=== PATIENT | male | born 1955 | race Caucasian/White ===

== ENCOUNTER → 2016-09-08 | Outpatient (CLI) | payer BC ==
[~2016-09-08] MED LIST: ACET-1256 PO; CHOL100010 PO; EZET10TA41 PO; GLC500 PO; LISI-461 PO; MELA1TAB5 PO; OXYC1TAB3 PO; SENNTAB23 PO
[2016-09-08 13:11] LABS: BLOOD UREA NITROGEN 24 mg/dl (7-18); BUN/CREATININE RATIO 19.8 (10-20); CALCIUM 9.1 mg/dl (8.5-10.1); CARBON DIOXIDE 23 mmol/L (21-32); CHLORIDE 106 mmol/L (98-107); GLUCOSE 338 mg/dl (70-99); POTASSIUM 4.9 mmol/L (3.5-5.1); SODIUM 138 mmol/L (136-145)
[2016-09-08 13:20] LABS: BETA-HYDROXYBUTYRATE 1.88 mg/dL (0.2-2.81)
[2016-09-08 13:34] LABS: ESTIMATED AVERAGE GLUCOSE 289 mg/dl; HA1C FLAG Normal (Normal)
== END | disposition home or self-care (01) ==
LOC: C.LABPVFM 07:53
PROVIDERS: ATTEND Family Medicine
DX: E11.9 Type 2 diabetes mellitus without complications (principal)

== ENCOUNTER → 2017-01-01 | Outpatient (CLI) | payer BC ==
[2017-01-01 17:40] LABS: HEMATOCRIT 40.2 % (42-52); MEAN CELL VOLUME 85.4 fL (80-100); MEAN CORPUSCULAR HEMOGLOBIN 28.2 pg (25-34); MEAN CORPUSCULAR HGB CONC 33.1 g/dl (32-36); RED BLOOD COUNT 4.71 M/uL (4.7-6.1); WHITE BLOOD COUNT 5.63 K/uL (4.8-10.8)
[2017-01-01 18:05] LABS: BASO % 0.2 %; BASO ABS # 0.01 K/uL (0-0.2); COMPLETE YES; EOS % 1.6 %; IG% 0.5 %; LYMPH % 19.7 %; LYMPH ABS # 1.11 K/uL (1.2-3.4); MONO % 7.3 %; NEUT % 70.7 %; PLATELET COUNT 83 K/uL (130-400); PLT ESTIMATE DECREASED
[2017-01-01 18:39] LABS: BLOOD UREA NITROGEN 21 mg/dl (7-18); BUN/CREATININE RATIO 17.3 (10-20); CARBON DIOXIDE 21 mmol/L (21-32); CHLORIDE 107 mmol/L (98-107); CHOLESTEROL 152 mg/dl (0-200); GLUCOSE 178 mg/dl (70-99); POTASSIUM 4.2 mmol/L (3.5-5.1); SODIUM 140 mmol/L (136-145); TRIGLYCERIDES 350 mg/dl (0-150); VERY LOW DENSITY LIPOPROT CALC 70 mg/dl
[2017-01-01 18:43] LABS: CHOLESTEROL/HDL RATIO 6.1; HDL CHOLESTEROL 25 mg/dl; LDL CHOLESTEROL CALCULATED 57 mg/dl
[2017-01-01 19:06] LABS: CALCIUM 8.9 mg/dl (8.5-10.1)
[2017-01-02 06:43] LABS: ESTIMATED AVERAGE GLUCOSE 232 mg/dl; HA1C FLAG Normal (Normal)
== END | disposition home or self-care (01) ==
LOC: C.LABPVFM 16:10
PROVIDERS: ATTEND Family Medicine
DX: I10 Essential (primary) hypertension (principal); E11.65 Type 2 diabetes mellitus with hyperglycemia; E78.2 Mixed hyperlipidemia; D69.6 Thrombocytopenia, unspecified

== ENCOUNTER → 2017-01-30 | Outpatient (CLI) | payer BC ==
[~2017-01-30] MED LIST changes: +GADAVIST IV PRN
--- NOTE | 2017-01-30 14:05 | DIAGNOSTIC IMAGING REPORT ---
LUMBAR SPINE MRI WITH AND WITHOUT CONTRAST HISTORY: Pain. Radiculopathy. M54.16 Lumbar radiculopathy TECHNIQUE: Multiplanar multisequence MRI of the lumbar spine was performed both before and after the intravenous administration of contrast. COMPARISON: None. FINDINGS: For the purpose of the report the L5-S1 disc space will be located on axial image 2932. No evidence for bone marrow replacing process. 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 Moderate degenerative disc changes throughout. No abnormal postcontrast enhancement on the sagittal images L1-L2: No significant central canal or neural foraminal narrowing. 4.3 cm right renal cyst L2-L3: No significant central canal or neural foraminal narrowing. 1 cm mid to lower pole right renal cyst L3-L4: No significant central canal or neural foraminal narrowing. L4-L5: Mild broad-based bulging disc with mild narrowing right neuroforamina. L5-S1: Broad-based bulging disc with mild narrowing of the neuroforamina bilaterally. Minimal impact anterior thecal sac. IMPRESSION: 1 no evidence for major disc herniation or significant component of spinal stenosis. 2. Broad-based bulging disc L4-L5 and L5-S1 with mild right and to lesser extent left narrowing of the neuroforamina bilaterally 3. Multiple benign hemangiomas throughout the lumbosacral spine. 4. No abnormal postcontrast enhancement characteristics 5. Several right renal cyst. Electronically signed by: Steven Hernandez M.D. 01/30/2017 2:04 PM Dictated Date/Time: 01/30/2017 2:00 PM
== END | disposition home or self-care (01) ==
LOC: C.MRIBC 12:00
PROVIDERS: ATTEND Psychiatry & Neurology Neurology
DX: M51.17 Intervertebral disc disorders with radiculopathy, lumbosacral region (principal); D18.09 Hemangioma of other sites; N28.1 Cyst of kidney, acquired

== ENCOUNTER → 2017-06-24 | Outpatient (CLI) | payer BC ==
[~2017-06-24] MED LIST changes: -GADAVIST IV PRN
[2017-06-24 17:55] LABS: BLOOD UREA NITROGEN 18 mg/dl (7-18); BUN/CREATININE RATIO 14.6 (10-20); CALCIUM 9.5 mg/dl (8.5-10.1); CARBON DIOXIDE 22 mmol/L (21-32); CHLORIDE 104 mmol/L (98-107); CHOLESTEROL 158 mg/dl (0-200); CREATININE 1.25 mg/dl (0.60-1.40); GLUCOSE 266 mg/dl (70-99); POTASSIUM 4.3 mmol/L (3.5-5.1); SODIUM 134 mmol/L (136-145)
[2017-06-24 17:59] LABS: CHOLESTEROL/HDL RATIO 5.4; HDL CHOLESTEROL 29 mg/dl; LDL CHOLESTEROL CALCULATED 58 mg/dl; TRIGLYCERIDES 355 mg/dl (0-150); VERY LOW DENSITY LIPOPROT CALC 71 mg/dl
[2017-06-25 07:16] LABS: ESTIMATED AVERAGE GLUCOSE 272 mg/dl; HA1C FLAG Normal (Normal)
== END | disposition home or self-care (01) ==
LOC: C.LABPVFM 14:43
PROVIDERS: ATTEND Family Medicine
DX: I10 Essential (primary) hypertension (principal); E78.2 Mixed hyperlipidemia; E11.65 Type 2 diabetes mellitus with hyperglycemia

== ENCOUNTER → 2017-11-23 | Outpatient (CLI) | payer BC ==
[2017-11-23 09:36] LABS: HEMATOCRIT 39.3 % (42-52); HEMOGLOBIN 13.1 g/dL (14.0-18.0); MEAN CELL VOLUME 84.3 fL (80-100); MEAN CORPUSCULAR HEMOGLOBIN 28.1 pg (25-34); MEAN CORPUSCULAR HGB CONC 33.3 g/dl (32-36); MEAN PLATELET VOLUME 10.2 fL (7.4-10.4); PLATELET COUNT 53 K/uL (130-400); RED CELL DISTRIBUTION WIDTH CV 13.5 % (11.5-14.5); RED CELL DISTRIBUTION WIDTH SD 40.6 fL (36.4-46.3); WHITE BLOOD COUNT 4.27 K/uL (4.8-10.8)
[2017-11-23 09:44] LABS: HEMOGLOBIN A1C 10.6 % (4.5-5.6)
[2017-11-23 09:59] LABS: ALT/SGPT 33 U/L (12-78); AST/SGOT 27 U/L (15-37); BLOOD UREA NITROGEN 19 mg/dl (7-18); CALCIUM 8.6 mg/dl (8.5-10.1); CARBON DIOXIDE 24 mmol/L (21-32); CHOLESTEROL 134 mg/dl (0-200); CREATININE 1.09 mg/dl (0.60-1.40); GLUCOSE 214 mg/dl (70-99); POTASSIUM 4.6 mmol/L (3.5-5.1); SODIUM 136 mmol/L (136-145)
[2017-11-23 10:09] LABS: BASO % 0.2 %; BASO ABS # 0.01 K/uL (0-0.2); EOS % 1.4 %; EOS ABS # 0.06 K/uL (0-0.5); IG# 0.01 K/uL (0.00-0.02); LYMPH ABS # 0.94 K/uL (1.2-3.4); MONO % 5.4 %; MONO ABS # 0.23 K/uL (0.11-0.59); NEUT % 70.8 %; NEUT ABS # 3.02 K/uL (1.4-6.5)
[2017-11-23 10:10] LABS: ALKALINE PHOSPHATASE 86 U/L (45-117); LDL CHOLESTEROL CALCULATED 67 mg/dl; TOTAL PROTEIN 7.7 gm/dl (6.4-8.2)
== END | disposition home or self-care (01) ==
LOC: C.LAB 08:47
PROVIDERS: ATTEND Family Medicine
DX: E78.2 Mixed hyperlipidemia (principal)

== ENCOUNTER 2018-07-24 23:36 | Inpatient (IN) ==
[2018-07-24] MEDS ORDERED: SODIUM CHLORIDE 0.9% 1000ML 1,000 ML IV SCH (23:45)
[2018-07-24] MEDS ORDERED: ONDANSETRON INJ 2 MG/ML 2 ML VIAL IV STA (23:53)
[2018-07-24] MEDS ORDERED: fentaNYL citrate 100 MCG/2 ML VIAL IV STA (23:53)
[2018-07-25 00:11] LABS: Basophils # (auto) 0.01 K/uL (0-0.2); Basophils % (auto) 0.1 %; Eosinophils # (auto) 0.05 K/uL (0-0.5); Eosinophils % (auto) 0.5 %; Hematocrit (blood only) 32.7 % (42-52); Hemoglobin 10.9 g/dL (14.0-18.0); Immature Granulocytes # (auto) 0.11 K/uL (0.00-0.02); Lymphocytes # (auto) 0.64 K/uL (1.2-3.4); Lymphocytes % (auto) 6.1 %; Mean Corpuscular Hgb Conc 33.3 g/dL (32-36); Mean Corpuscular Volume 81.3 fL (80-100); Monocytes % (auto) 6.6 %; Neutrophils # (auto) 9.04 K/uL (1.4-6.5); Neutrophils % (auto) 85.7 %; Platelet Count 144 K/uL (130-400); RDW Coefficient of Variation 13.8 % (11.5-14.5); RDW Standard Deviation 41.6 fL (36.4-46.3); Red Blood Count 4.02 M/uL (4.7-6.1); White Blood Count 10.55 K/uL (4.8-10.8)
[2018-07-25 00:17] LABS: iSTAT Hemoglobin 10.5 g/dl (14.0-18.0); iSTAT Ionized Calcium 1.07 mmol/l (1.12-1.32)
[2018-07-25 00:37] LABS: Alanine Aminotransferase 29 U/L (12-78); Albumin Level 2.8 gm/dl (3.4-5.0); Aspartate Aminotransferase 25 U/L (15-37); BUN Creatinine Ratio 9.7 (10-20); Blood Urea Nitrogen 14 mg/dl (7-18); Carbon Dioxide 23 mmol/L (21-32); Chloride 94 mmol/L (98-107); Est GFR (Non-African American) 53.5; Glucose 326 mg/dl (70-99); Potassium 4.1 mmol/L (3.5-5.1); Sodium 128 mmol/L (136-145)
[2018-07-25 00:39] LABS: Albumin Globulin Ratio 0.5 (0.9-2); Globulin 5.6 gm/dl (2.5-4.0); Total Protein 8.4 gm/dl (6.4-8.2)
[2018-07-25] MEDS ORDERED: OPTIRAY 320 125ml IV PRN (00:46)
[2018-07-25 00:47] LABS: Alkaline Phosphatase 194 U/L (45-117)
[2018-07-25] MEDS ORDERED: LIDOCAINE HCL 1% 20 ML VIAL INFIL ONE (01:03)
[2018-07-25] MEDS ORDERED: CEFAZOLIN 2000MG 2,000 MG/15 ML SYR IV STA (03:18)
[2018-07-25] MEDS ORDERED: NovoLIN-R INSULIN PER UNIT CHARGE SC STA (03:18)
[2018-07-25] MEDS ORDERED: SULFAMETHOXAZOLE/TRIMETHOPRIM DS 800/160MG TAB PO ONE (03:18)
[2018-07-25] MEDS ORDERED: INSULIN GLARGINE 100 UNIT/ML VIAL SC STA (03:20)
[2018-07-25] MEDS ORDERED: AMPICILLIN/SULBACTAM SOD 3,000 MG in 0.9 % SODIUM CHLORIDE 100 ML IV STA (03:22)
[2018-07-25] MEDS ORDERED: fentaNYL citrate 100 MCG/2 ML VIAL IV STA (03:26)
[2018-07-25] MEDS ORDERED: ACETAMINOPHEN 500 MG TAB PO STA (03:26)
[2018-07-25 03:52] LABS: Hematocrit (blood only) 26.6 % (42-52); Hemoglobin 8.6 g/dL (14.0-18.0)
--- NOTE | 2018-07-25 05:19 | History & Physical Report ---
Date of Service July 25, 2018 Assessment & Plan (1) Abdominal wall hematoma: 62 y/o M Hx DM II, HTN, HLD, iron-deficient anemia, cirrhosis by imaging, splenomegaly, necrotizing fasciitis of abdominal wall 2016, recent diagnosis of undefined soft tissue masses adjacent to rectus sheath. The pt noted a firm collection in his RL abdomen a few weeks ago. This was diagnosed as a hematoma and he was instructed on conservative management after visiting the ER. The hematoma had enlarged since then and had caused an increasing amount of pain. The pt was prepping for a colonoscopy the prior evening which is taking place due to the above finding of the soft tissue densities. He was preparing to deficate when a stream of blood emanated from a dimple-like scar on his lower mid abdomen. He then presented to the ER for evaluation. A CT abdomen in the ER revealed a complex 20cm fluid collection in the RLQ and ant bladder wall thickening with a 6cm collection. Chronic abnormalities were present as well including splenomegaly. The collection was drained at two sites and packed by the ER attending. It had a viscous, dark appearance and appeared to be infected as well. The pt's Hb was checked following drainage of the collection and had decreased from 10.9 to 8.6. Albeit, he did receive a litre of fluids as well. Labs were otherwise otable for an elevated K, hyponatremia and hypokalemia. 1) Large abdominal wall hematoma - possibly infected - willl request a surgical eval as he may need additional debridement. We will place him on Unasyn in the interim. 2) Ant bladder wall thickening and possible collection/abscess - may be related drainage - this too should be evaluated by surgery or urology. A UA is pending - he was not having related symptoms. 3) Soft tissue densities - concern for colonic origin - He will need to delay a colonoscopy - can f/u as outpt 4) Nypona, hyperK without PREETI - IVF provided - repeat pending 5) DM - hyperglycemia - placed on Lantus and a SS 6) HTN/HLD - can remain on Lisinopril and Zocor Full code - SCDs Total time for this admit including review of labs, meds, imaging, records - discussion with pt and ER attending - 45 min Present on Admission?: Yes History of Present Illness Chief Complaint: Hematoma and draining sinus, abdominal pain. Primary Care Provider: Radha Killian MD 62 y/o M Hx DM II, HTN, HLD, iron-deficient anemia, cirrhosis by imaging, splenomegaly, necrotizing fasciitis of abdominal wall 2016, recent diagnosis of undefined soft tissue masses adjacent to rectus sheath. The pt noted a firm collection in his RL abdomen a few weeks ago. This was diagnosed as a hematoma and he was instructed on conservative management after visiting the ER. The hematoma had enlarged since then and had caused an increasing amount of pain. The pt was prepping for a colonoscopy the prior evening which is taking place due to the above finding of the soft tissue densities. He was preparing to deficate when a stream of blood emanated from a dimple-like scar on his lower mid abdomen. He then presented to the ER for evaluation. A CT abdomen in the ER revealed a complex 20cm fluid collection in the RLQ and ant bladder wall thickening with a 6cm collection. Chronic abnormalities were present as well including splenomegaly. The collection was drained at two sites and packed by the ER attending. It had a viscous, dark appearance and appeared to be infected as well. The pt's Hb was checked following drainage of the collection and had decreased from 10.9 to 8.6. Albeit, he did receive a litre of fluids as well. Labs were otherwise otable for an elevated K, hyponatremia and hypokalemia. 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 - does not currently smoke or drink Family: Noncontributory Allergies Allergy/AdvReac Type Severity Reaction Status Date / Time No Known Allergies Allergy Unknown Verified 07/25/18 03:04 Home Medications Home Medications Medication Instructions Recorded Confirmed Type ezetimibe-simvastatin 1 tab PO QAM 07/02/18 07/25/18 History insulin glargine [Lantus Solostar 34 units SUBCUT QPM 07/02/18 07/25/18 History U-100 Insulin] linagliptin [Tradjenta] 5 mg PO QAM 07/02/18 07/25/18 History lisinopril 10 mg PO QAM 07/02/18 07/25/18 History melatonin 10 mg PO HS PRN 07/02/18 07/25/18 History ascorbic acid (vitamin C) [Vitamin 1 g PO QAM 07/09/18 07/25/18 History C] cholecalciferol (vitamin D3) 1,000 unit PO QAM 07/09/18 07/25/18 History [Vitamin D3] polyethylene glycol 3350 17 g PO BID PRN 07/09/18 07/25/18 History sennosides [senna] 2 tab PO BID PRN 07/09/18 07/25/18 History oxycodone-acetaminophen [Percocet] 1 tab PO Q4 PRN 07/25/18 07/25/18 History sildenafil (antihypertensive) 20 mg PO UD PRN 07/25/18 07/25/18 History Past Med/Surg History Medical History Chronic anemia Diabetes mellitus, type 2 Diabetic peripheral neuropathy Hematoma of abdominal wall lower right quadrant History of colon polyps Hyperlipidemia Hypertension Kidney stones Lumbar radiculopathy Necrotizing fasciitis 2016 Renal dysfunction hx of during necrotizing fasciitis Sleep apnea history of; lost weight no longer has Thrombocytopenia Surgical History History of colonoscopy History of lithotripsy x2 History of surgery for necrotizing fasciitis of abdomen @ [facility] Status post anal fissurectomy Status post cystoscopy with ureteral stent placement x2 Family History Father Family history of diabetes mellitus Social History marital status: Current Living Situation: Spouse current occupational status: employed Feels Safe at Home: Yes Smoking Status: Former smoker Second Hand Exposure: Yes ( smokes) Hx Alcohol Use: No Hx Substance Use: No Beliefs That Will Affect Care: None Preferred Language: Guamanian Communication Ability: Effective Review of Systems General: Denies fevers, night sweats, weight loss, weight gain ENT: Denies throat pain, nasal congestion Eyes: Denies acute visual impairment, eye pain Cardiovascular: Denies CP, palpitations, PND, orthopnea Respiratory: Denies SOB, productive cough, wheezing GI: RLQ and lower ant abdominal pain : Denies dysuria, hesitancy, frequency, hematuria Neuro: Denies headache, lightheadedness, syncope, unilateral weakness, acute loss of balance, memory loss Endocrine: Denies polydypsia, polyuria Heme: Large hematoma as above Skin: Acute bleeding from scar in lower abd wall Physical Exam 2 Vital Signs (Past 24 Hours): Last Vital Signs Temp 36.3 C L 07/24/18 23:24 Pulse 94 H 07/25/18 04:33 Resp 16 07/25/18 04:33 BP 148/78 H 07/25/18 04:33 Pulse Ox 97 07/25/18 04:33 Physical Exam: General: AAO x 3, no distress ENT: No erythema or exudates, no thrush Eyes: DEVORA, EOMI Head and neck: Normocephalic, atraumatic, No JVD, neck is supple. Chest/heart: Nontender, S1,2, RRR, no murmurs, no gallops Lungs: CTAB, no wheezing or crackles Abdomen: Firm, circumscribed area on RLQ incision packed and drain placed, drain placed in sinus on lower ant abdomen Neuro: AAO x 3, speech is clear, no unilateral weakness or loss of sensation, coordination intact Musculoskeletal: No joint inflammation, muscle tenderness, FROM Skin: Erythema overlying hematoma areas Extremities: No clubbing, cyanosis, edema Results & Data Diagnostic Findings CT 07/25/18 1) 20 CM complex mass in RLQ - likely hematoma 2) Anterior bladder wall thickening with 6cm fluid collection - cannot r/o abscess 3) Splenomegaly 4) Small L pleural effusion CT abd/pelvis 07/02/18 1. Cirrhotic morphology of the liver with mild hepatomegaly and persistent moderate to marked splenomegaly 2. Cholelithiasis 3. Left-sided nephrolithiasis no ureteral calculi identified 4. No evidence of bowel obstruction. No evidence of free air 5. Tangential right lower quadrant extraperitoneal masses contiguous with the right rectus sheath measuring 46 and 27 mm respectively. Diagnostic considerations include resolving hematomas, abscesses, or necrotic neoplasm. Clinical correlation and follow-up will be necessary. _ (1) Abdominal wall hematoma Encounter type: initial encounter Qualified Code(s): S30.1XXA - Contusion of abdominal wall, initial encounter
[2018-07-25 05:58] LABS: Appearance Urine Clear (Clear); Bilirubin Urine Negative (Negative); Color Urine Amber; Glucose Urine UA 3+ (Negative); Ketones Urine 1+ (Negative); Leukocyte Esterase Urine Negative (Negative); Nitrite Urine Negative (Negative); Protein Urine Trace (Negative); Urobilinogen Urine Negative (Negative)
[2018-07-25] MEDS ORDERED: POLYETHYLENE (MIRALAX) 17 GM PACK PO PRN (06:40)
[2018-07-25 06:42] LABS: Bacteria Urine Negative (Negative); Hyaline Casts Urine 0-5 /lpf (0-5); RBC Urine 0-4 /hpf (0-4); WBC Urine 0-5 /hpf (0-5)
--- NOTE | 2018-07-25 06:49 | Emergency Department Note ---
Entered by Alfredo Broussard acting as a scribe for History of Present Illness General Chief complaint: Wound Dehiscence Source: patient and EMS History of Present Illness Provider complaint: Wound Dehiscence Onset (ago): hour(s) 2 Location: abdomen Radiation: non-radiation Pain Consistency: + constant Quality: + other (Bleeding/oozing) Associated symptoms: + other (Lightheadedness ) The patient is a 62 year old male who presents to the Emergency Room via EMS after experiencing constant wound dehiscence that started about 2 hours ago around 2200. He reports he took his first prep for a colonoscopy he has scheduled for tomorrow when he stood up to use the bathroom and felt a pinch in his lower abdomen. By the time he made it to the bathroom he was already bleeding and he soaked an entire towel before EMS arrived. The wound is originally from a surgery he had 4 years ago for necrotizing fasciitis. He is experiencing pain around the area of the wound and some lightheadedness. Patient has a soft tissue density identified on CT scan of the abdomen and pelvis several weeks ago. He has a colonoscopy scheduled as follow-up. The patient is not on any blood thinners but he does take Percocet for pain relief. He denies any trauma to the area of pain. Home Medications Home Medications Medication Instructions Recorded Confirmed Type ezetimibe-simvastatin 1 tab PO QAM 07/02/18 07/25/18 History insulin glargine [Lantus Solostar 34 units SUBCUT QPM 07/02/18 07/25/18 History U-100 Insulin] linagliptin [Tradjenta] 5 mg PO QAM 07/02/18 07/25/18 History lisinopril 10 mg PO QAM 07/02/18 07/25/18 History melatonin 10 mg PO HS PRN 07/02/18 07/25/18 History ascorbic acid (vitamin C) [Vitamin 1 g PO QAM 07/09/18 07/25/18 History C] cholecalciferol (vitamin D3) 1,000 unit PO QAM 07/09/18 07/25/18 History [Vitamin D3] polyethylene glycol 3350 17 g PO BID PRN 07/09/18 07/25/18 History sennosides [senna] 2 tab PO BID PRN 07/09/18 07/25/18 History oxycodone-acetaminophen [Percocet] 1 tab PO Q4 PRN 07/25/18 07/25/18 History sildenafil (antihypertensive) 20 mg PO UD PRN 07/25/18 07/25/18 History Allergies Allergy/AdvReac Type Severity Reaction Status Date / Time No Known Allergies Allergy Unknown Verified 07/25/18 03:04 Past Med/Surg History Medical History Chronic anemia Diabetes mellitus, type 2 Diabetic peripheral neuropathy Hematoma of abdominal wall lower right quadrant History of colon polyps Hyperlipidemia Hypertension Kidney stones Lumbar radiculopathy Necrotizing fasciitis 2016 Renal dysfunction hx of during necrotizing fasciitis Sleep apnea history of; lost weight no longer has Thrombocytopenia Surgical History History of colonoscopy History of lithotripsy x2 History of surgery for necrotizing fasciitis of abdomen [place] [facility] [place] Status post anal fissurectomy Status post cystoscopy with ureteral stent placement x2 Family History Father Family history of diabetes mellitus Social History marital status: Current Living Situation: Spouse current occupational status: employed Feels Safe at Home: Yes Safety Concerns: Feels Safe At This Time Smoking Status: Never smoker Second Hand Exposure: Yes ( smokes) Hx Alcohol Use: No Hx Substance Use: No Beliefs That Will Affect Care: None Preferred Language: Syriac Fur Coat Sewer Required: No Review of Systems See HPI for pertinent positives & negatives. and A total of 10 systems reviewed and were otherwise negative Physical Exam Vital Signs Vital Signs - 24 hr 07/24/18 23:24 07/24/18 23:53 07/25/18 01:00 Temperature 36.3 C L Temperature Source Oral Sepsis Recent Fever Within 48 Hours Yes Sepsis New/Unexplained Change in Mental Status No Sepsis Action Taken by Nursing No Action Required Pulse Rate 120 H Pulse Rate [Left Radial] 99 H Pulse Rhythm Regular Pulse Rhythm [Left Radial] Regular Pulse Strength Normal Pulse Strength [Left Radial] Normal Respiratory Rate 20 20 Respiratory Effort / Characteristics Non-Labored Spontaneous Non-Labored Spontaneous Respiratory Depth Normal Normal Respiratory Pattern Regular Regular Blood Pressure 135/83 Blood Pressure [Left Arm] 140/72 Blood Pressure Mean 100 Blood Pressure Mean [Left Arm] 94 Blood Pressure Position Lying Blood Pressure Position [Left Arm] Lying Pulse Oximetry 100 100 99 Oxygen Delivery Method Room Air Room Air 07/25/18 03:24 07/25/18 04:33 07/25/18 06:21 Temperature 36.4 C L Temperature Source Oral Sepsis Recent Fever Within 48 Hours Sepsis New/Unexplained Change in Mental Status Sepsis Action Taken by Nursing Pulse Rate Pulse Rate [Left Radial] 117 H 94 H 87 Pulse Rhythm Pulse Rhythm [Left Radial] Regular Regular Pulse Strength Pulse Strength [Left Radial] Normal Normal Respiratory Rate 18 16 18 Respiratory Effort / Characteristics Non-Labored Non-Labored Non-Labored Spontaneous Respiratory Depth Normal Normal Normal Respiratory Pattern Regular Regular Regular Blood Pressure Blood Pressure [Left Arm] 144/67 H 148/78 H 140/68 Blood Pressure Mean Blood Pressure Mean [Left Arm] 92 101 92 Blood Pressure Position Blood Pressure Position [Left Arm] Lying Lying Pulse Oximetry 100 97 97 Oxygen Delivery Method Room Air Room Air Room Air Vital signs reviewed. General: Chronically ill-appearing 62 year old male, in no significant distress. Obese HEENT: No scleral icterus, PERRLA, neck supple. Atraumatic. Cardiovascular: Regular rate and rhythm, no extra sounds. Pulmonary: Clear to auscultation bilaterally, normal work of breathing. Abdomen: Soft, nondistended, positive bowel sounds. Tender to the RLQ. 15cm indurated area along the right lower abdomen, laterally. Midline post-surgical wound with a 0.5cm opening along the incision vigorously draining a red, milky, fluid that appears to be continuous with the right abdominal findings. Musculoskeletal: Atraumatic, no peripheral edema. Neurologic: Patient awake alert and oriented x 3 Skin: Warm, dry, no rash Procedures Abscess I/D Site: abdomen Side (if applicable): right Sedation/analgesia: none Local Anesthetic: lidocaine 1% Amount of anesthesia used (mL): 7 Technique: incised with #11 blade Amount of fluid expressed (mL): 50 Irrigation: Yes Packing used?: iodoform Complications: pain and bleeding Course 2343: Past medical records reviewed. The patient was evaluated in room B03, and a complete history and physical examination were performed. 0235: I performed an I&D on the patient's abdomen. See procedure note but more information. 0405: I reevaluated the patient and he is feeling much better. I also updated him on the plan of treatment. Dr. [facility] Hospitalist was paged. 0420: I spoke to Dr. [facility] Hospitalist about the patient's case and he is going to accept him for further evaluation. Consultations Consultation #1: I spoke to Dr. [facility] Hospitalist about the patient's case and he is going to accept him for further evaluation. Time: 04:20 Administered Medications Discontinued Medications Acetaminophen (Tylenol) 1,000 mg PO NOW STA Stop: 07/25/18 03:27 Last Admin: 07/25/18 03:48 Dose: 1,000 mg Fentanyl Citrate (Fentanyl Citrate) 100 mcg IV NOW STA Stop: 07/24/18 23:54 Last Admin: 07/25/18 00:48 Dose: 100 mcg Fentanyl Citrate (Fentanyl Citrate) 50 mcg IV NOW STA Stop: 07/25/18 03:27 Last Admin: 07/25/18 03:49 Dose: 50 mcg Sodium Chloride (Nss 1000ml) 1,000 mls @ 999 mls/hr IV .Q1H1M HARJINDER Stop: 07/25/18 00:45 Last Admin: 07/25/18 00:48 Dose: Not Given Cefazolin Sodium (Ancef 2000mg) 2,000 mg in 15 mls @ 3.75 mls/min IV NOW STA; Protocol Stop: 07/25/18 03:21 Last Admin: 07/25/18 04:26 Dose: Not Given Ampicillin Sodium/Sulbactam Sodium 3,000 mg/ Sodium Chloride 108 mls @ 200 mls/ hr IV NOW STA Stop: 07/25/18 03:54 Last Infusion: 07/25/18 04:26 Dose: 0 mls/hr Admin: 07/25/18 03:48 Dose: 200 mls/hr Insulin Glargine (Lantus) 34 units SC NOW STA Stop: 07/25/18 03:21 Last Admin: 07/25/18 03:47 Dose: 34 units Insulin Human Regular (Novolin R U-100 Per Unit) 10 units SC NOW STA Stop: 07/25/18 03:19 Last Admin: 07/25/18 03:46 Dose: 10 units Ioversol (Optiray 320 125ml) 125 ml IV ONCE PRN PRN Reason: Interaction Checking Stop: 07/29/18 00:45 Last Admin: 07/25/18 00:46 Dose: 119 ml Lidocaine HCl (Xylocaine 1% (Local)) 20 ml INFIL NOW ONE Stop: 07/25/18 01:04 Last Admin: 07/25/18 01:32 Dose: 20 ml Ondansetron HCl (Zofran) 4 mg IV NOW STA Stop: 07/24/18 23:54 Last Admin: 07/25/18 00:48 Dose: 4 mg Trimethoprim/Sulfamethoxazole (Septra Ds 800/160mg Tab) 1 tab PO NOW ONE Stop: 07/25/18 03:19 Last Admin: 07/25/18 03:47 Dose: 1 tab Medical Decision Making Differential Diagnosis Differential Diagnoses include: AAA, rectus sheath hematoma, abscess, fistula, cellulitis, and intraperitoneal fluid collection, amongst others. Medical Records Attestation: I reviewed the patient's medical records. Home Medications Current Medication List: was personally reviewed by me Laboratory Data Attestation: I reviewed the patient's lab results. Result diagrams: 07/25/18 03:35 07/25/18 00:04 Lab Results 07/25/18 07/25/18 07/25/18 Range/Units 00:04 00:04 00:04 WBC 10.55 (4.8-10.8) K/uL RBC 4.02 L (4.7-6.1) M/uL Hgb 10.9 L (14.0-18.0) g/dL POC Hgb 10.5 L (14.0-18.0) g/dl Hct 32.7 L (42-52) % POC Hct 31 L (42-52) % MCV 81.3 (80-100) fL MCH 27.1 (25-34) pg MCHC 33.3 (32-36) g/dL RDW Std Deviation 41.6 (36.4-46.3) fL RDW Coeff of Daniel 13.8 (11.5-14.5) % Plt Count 144 (130-400) K/uL MPV 10.0 (7.4-10.4) fL Immature Gran % (Auto) 1.0 % Neut % (Auto) 85.7 % Lymph % (Auto) 6.1 % [place] % (Auto) 6.6 % Eos % (Auto) 0.5 % Baso % (Auto) 0.1 % Immature Gran # (Auto) 0.11 H (0.00-0.02) K/uL Neut # (Auto) 9.04 H (1.4-6.5) K/uL Lymph # (Auto) 0.64 L (1.2-3.4) K/uL [place] # (Auto) 0.70 H (0.11-0.59) K/uL Eos # (Auto) 0.05 (0-0.5) K/uL Baso # (Auto) 0.01 (0-0.2) K/uL POC Sodium 129 L (135-144) mEq/L Sodium 128 L (136-145) mmol/L POC Potassium 5.8 H (3.3-5.0) mEq/L Potassium 4.1 (3.5-5.1) mmol/L POC Chloride 95 L (101-112) mEq/L Chloride 94 L (98-107) mmol/L Carbon Dioxide 23 (21-32) mmol/L POC Total CO2 23 L (24-31) mEq/l Anion Gap 11.0 (3-11) POC Anion Gap 17.0 (16-25) mmol/L POC BUN 17 (7-18) mg/dl BUN 14 (7-18) mg/dl Creatinine 1.40 (0.6-1.4) mg/dl POC Creatinine 1.1 (0.6-1.3) mg/dl Est Cr Clr Drug Dosing Not Reportable Est GFR ( Amer) 62.0 Est GFR (Non-Af Amer) 53.5 BUN/Creatinine Ratio 9.7 L (10-20) Glucose 326 H (70-99) mg/dl POC Glucose (70-99) POC Glucose (other) 345 H (70-99) mg/dl Calcium 9.0 (8.5-10.1) mg/dl POC Ioniz Calcium Karthikeyan 1.07 L (1.12-1.32) mmol/l Total Bilirubin 1.0 (0.2-1) mg/dl AST 25 (15-37) U/L ALT 29 (12-78) U/L Alkaline Phosphatase 194 H (45-117) U/L Total Protein 8.4 H (6.4-8.2) gm/dl Albumin 2.8 L (3.4-5.0) gm/dl Globulin 5.6 H (2.5-4.0) gm/dl Albumin/Globulin Ratio 0.5 L (0.9-2) Beta-Hydroxybutyric Acd 5.21 H (0.2-2.81) mg/dl Urine Color Urine Appearance (Clear) Urine pH (4.5-7.5) Ur Specific [place] (1.000-1.030) Urine Protein (Negative) Urine Glucose (UA) (Negative) Urine Ketones (Negative) Urine Blood (Negative) Urine Nitrite (Negative) Urine Bilirubin (Negative) Urine Urobilinogen (Negative) Ur Leukocyte Esterase (Negative) Urine RBC (0-4) /hpf Urine WBC (0-5) /hpf Ur Epithelial Cells (0-5) /lpf Urine Bacteria (Negative) Hyaline Casts (0-5) /lpf Blood Type Blood Type Recheck Antibody Screen Crossmatch 07/25/18 07/25/18 07/25/18 Range/Units 00:58 03:35 03:38 WBC (4.8-10.8) K/uL RBC (4.7-6.1) M/uL Hgb 8.6 L (14.0-18.0) g/dL POC Hgb (14.0-18.0) g/dl Hct 26.6 L (42-52) % POC Hct (42-52) % MCV (80-100) fL MCH (25-34) pg MCHC (32-36) g/dL RDW Std Deviation (36.4-46.3) fL RDW Coeff of Daniel (11.5-14.5) % Plt Count (130-400) K/uL MPV (7.4-10.4) fL Immature Gran % (Auto) % Neut % (Auto) % Lymph % (Auto) % [place] % (Auto) % Eos % (Auto) % Baso % (Auto) % Immature Gran # (Auto) (0.00-0.02) K/uL Neut # (Auto) (1.4-6.5) K/uL Lymph # (Auto) (1.2-3.4) K/uL [place] # (Auto) (0.11-0.59) K/uL Eos # (Auto) (0-0.5) K/uL Baso # (Auto) (0-0.2) K/uL POC Sodium (135-144) mEq/L Sodium (136-145) mmol/L POC Potassium (3.3-5.0) mEq/L Potassium (3.5-5.1) mmol/L POC Chloride (101-112) mEq/L Chloride (98-107) mmol/L Carbon Dioxide (21-32) mmol/L POC Total CO2 (24-31) mEq/l Anion Gap (3-11) POC Anion Gap (16-25) mmol/L POC BUN (7-18) mg/dl BUN (7-18) mg/dl Creatinine (0.6-1.4) mg/dl POC Creatinine (0.6-1.3) mg/dl Est Cr Clr Drug Dosing Est GFR ( Amer) Est GFR (Non-Af Amer) BUN/Creatinine Ratio (10-20) Glucose (70-99) mg/dl POC Glucose 351 H* (70-99) POC Glucose (other) (70-99) mg/dl Calcium (8.5-10.1) mg/dl POC Ioniz Calcium Karthikeyan (1.12-1.32) mmol/l Total Bilirubin (0.2-1) mg/dl AST (15-37) U/L ALT (12-78) U/L Alkaline Phosphatase (45-117) U/L Total Protein (6.4-8.2) gm/dl Albumin (3.4-5.0) gm/dl Globulin (2.5-4.0) gm/dl Albumin/Globulin Ratio (0.9-2) Beta-Hydroxybutyric Acd (0.2-2.81) mg/dl Urine Color Urine Appearance (Clear) Urine pH (4.5-7.5) Ur Specific [place] (1.000-1.030) Urine Protein (Negative) Urine Glucose (UA) (Negative) Urine Ketones (Negative) Urine Blood (Negative) Urine Nitrite (Negative) Urine Bilirubin (Negative) Urine Urobilinogen (Negative) Ur Leukocyte Esterase (Negative) Urine RBC (0-4) /hpf Urine WBC (0-5) /hpf Ur Epithelial Cells (0-5) /lpf Urine Bacteria (Negative) Hyaline Casts (0-5) /lpf Blood Type A Positive Blood Type Recheck Antibody Screen NEGATIVE Crossmatch See Detail 07/25/18 07/25/18 Range/Units 04:56 05:39 WBC (4.8-10.8) K/uL RBC (4.7-6.1) M/uL Hgb (14.0-18.0) g/dL POC Hgb (14.0-18.0) g/dl Hct (42-52) % POC Hct (42-52) % MCV (80-100) fL MCH (25-34) pg MCHC (32-36) g/dL RDW Std Deviation (36.4-46.3) fL RDW Coeff of Daniel (11.5-14.5) % Plt Count (130-400) K/uL MPV (7.4-10.4) fL Immature Gran % (Auto) % Neut % (Auto) % Lymph % (Auto) % [place] % (Auto) % Eos % (Auto) % Baso % (Auto) % Immature Gran # (Auto) (0.00-0.02) K/uL Neut # (Auto) (1.4-6.5) K/uL Lymph # (Auto) (1.2-3.4) K/uL [place] # (Auto) (0.11-0.59) K/uL Eos # (Auto) (0-0.5) K/uL Baso # (Auto) (0-0.2) K/uL POC Sodium (135-144) mEq/L Sodium (136-145) mmol/L POC Potassium (3.3-5.0) mEq/L Potassium (3.5-5.1) mmol/L POC Chloride (101-112) mEq/L Chloride (98-107) mmol/L Carbon Dioxide (21-32) mmol/L POC Total CO2 (24-31) mEq/l Anion Gap (3-11) POC Anion Gap (16-25) mmol/L POC BUN (7-18) mg/dl BUN (7-18) mg/dl Creatinine (0.6-1.4) mg/dl POC Creatinine (0.6-1.3) mg/dl Est Cr Clr Drug Dosing Est GFR ( Amer) Est GFR (Non-Af Amer) BUN/Creatinine Ratio (10-20) Glucose (70-99) mg/dl POC Glucose (70-99) POC Glucose (other) (70-99) mg/dl Calcium (8.5-10.1) mg/dl POC Ioniz Calcium Karthikeyan (1.12-1.32) mmol/l Total Bilirubin (0.2-1) mg/dl AST (15-37) U/L ALT (12-78) U/L Alkaline Phosphatase (45-117) U/L Total Protein (6.4-8.2) gm/dl Albumin (3.4-5.0) gm/dl Globulin (2.5-4.0) gm/dl Albumin/Globulin Ratio (0.9-2) Beta-Hydroxybutyric Acd (0.2-2.81) mg/dl Urine Color Elvia Urine Appearance Clear (Clear) Urine pH 5.0 (4.5-7.5) Ur Specific [place] 1.010 (1.000-1.030) Urine Protein Trace H (Negative) Urine Glucose (UA) 3+ H (Negative) Urine Ketones 1+ H (Negative) Urine Blood Trace H (Negative) Urine Nitrite Negative (Negative) Urine Bilirubin Negative (Negative) Urine Urobilinogen Negative (Negative) Ur Leukocyte Esterase Negative (Negative) Urine RBC 0-4 (0-4) /hpf Urine WBC 0-5 (0-5) /hpf Ur Epithelial Cells 0-5 (0-5) /lpf Urine Bacteria Negative (Negative) Hyaline Casts 0-5 (0-5) /lpf Blood Type Blood Type Recheck A Positive Antibody Screen Crossmatch Imaging Data Radiologist's Impression: Radiology results as stated below per my review and the radiologist's interpretation: CT ABDOMEN & PELVIS With Contrast 20cm complex fluid collection in the right lower abdominal wall, possibly a hematoma. Small left pleural effusion. Splenomegaly Nonobstructing left renal stones. Large amount of fluid in the colon without obstruction or significant wall thickening. Anterior bladder wall thickening with adjacent fluid collections measuring up to 6cm. Correlate clinically for infection. Cannot exclude abscess. Cholelithiasis without cholecystitis Radiologist: Mumtaz Smith MD Study ready at 00:52 and initial results transmitted at 00:57 ECG Data Attestation: I personally reviewed and interpreted this ECG as follows: Indication: abdominal pain Rate (beats per minute): 95 Rhythm: normal sinus Findings: no PAC, no PVC and no acute ischemic change Blood Pressure Blood Pressure Findings: Elevated blood pressure Blood Pressure Disposition: further management by hospitalist MDM Narrative This patient was evaluated and appeared to be in no significant distress. Physical examination reveals a chronically ill-appearing male in some discomfort. IV access was obtained and laboratory work was drawn. The patient had a large amount of old, milky appearing blood coming from a midline suprapubic wound. Patient states this is the site of her previous JO drain. On further inspection, patient has a large area of induration approximately 12- 15 cm on the right side of the abdominal wall, when this is palpated, additional drainage is noted from the suprapubic region. This does appear to be aggravated blood and either necrotic fat or exudative drainage. Patient does have some discomfort. CT scan of the abdomen pelvis was performed and is read as above with a 20 cm fluid collection, despite the massive amount of drainage previously. I&D was performed of the right lateral abdominal wall with additional drainage, cultures were taken from both sites. Patient was given Unasyn 3 g IV and p.o. Bactrim DS. Iodoform gauze was used to pack the area and a pressure dressing was applied. The patient's bleeding subsided almost immediately. Repeat H&H was performed and reveals a hemoglobin of 8.6. Patient was typed and crossed for 2 units and consented for transfusion if needed. I do not feel that the patient is acutely bleeding, I do feel that some of this is delusional from the IV saline administered. Repeat H&H is needed. Case was discussed with the hospitalist service, Dr. Dodson for further management. Impression & Plan Abdominal wall hematoma, Infection of wound hematoma Discharge Plan Visit Data Chief Complaint: Wound Dehiscence ED Provider: Roopa Lopez Discharge Problem: Abdominal wall hematoma, Infection of wound hematoma Patient Disposition: Being Evaluated by Hospitalist The scribe's documentation has been prepared under my direction and personally reviewed by me in its entirety. I confirm that the note above accurately reflects all work, treatment, procedures, and medical decision making performed by me.
[2018-07-25] MEDS ORDERED: GLUCAGON FOR INJ 1 MG VIAL IM PRN (07:10)
[2018-07-25] MEDS ORDERED: GLUCOSE 40% GEL 15 GM TUBE PO PRN (07:10)
[2018-07-25] MEDS ORDERED: CARBOHYDRATES FOR HYPOGLYCEMIA PO PRN (07:10)
[2018-07-25] MEDS ORDERED: GLUCOSE 10 TABS/TUBE PO PRN (07:10)
[2018-07-25] MEDS ORDERED: DEXTROSE 50% 50 ML SYRINGE IV PRN (07:10)
[2018-07-25] MEDS ORDERED: INSULIN GLARGINE SOLOSTAR 100 UNITS/ML 3 ML PEN SQ STA (07:14)
--- NOTE | 2018-07-25 07:17 | CT Scan Report ---
ABDOMEN AND PELVIS CT WITH IV CONTRAST CT DOSE: 1292.80 mGy.cm HISTORY: Hematoma of the right abdominal wall. Acute right lower quadrant abdominal pain. RLQ hemato ma, large amt midline drainage/hemorrhag TECHNIQUE: Multiaxial CT images of the abdomen and pelvis were performed following the use of intrave nous contrast. A dose lowering technique was utilized adhering to the principles of ALARA. COMPARISON STUDY: CT abdomen and pelvis 07/02/2018 FINDINGS: Small left pleural effusion with dependent left basilar consolidation suggesting atelectasis. No pneu matosis or pneumoperitoneum. Trace pericardial effusion. Coronary arterial calcifications are noted. Cirrhotic morphology of the liver with mild hepatomegaly. Spleen is enlarged measuring up to 23 cm. 1 .1 cm indeterminate hypodense lesion of the posterior spleen, statistically benign. Cholelithiasis wi thout CT evidence of acute cholecystitis. Patency of the hepatic and portal veins. Pancreas and adren al glands are unremarkable. Mildly prominent gastrohepatic and periportal lymph nodes, indeterminate. Cysts are noted about the bilateral kidneys measuring up to 5.5 cm about the superior pole right kidn ey. There are least for nonobstructing renal calculi on the left measuring up to 3 mm. Punctate nonob structing calculus of the inferior pole right kidney. No ureteral calculi or obstructive uropathy. Wa ll thickening of the urinary bladder, greatest anteriorly. Calcification the aorta without aneurysm. No small bowel obstruction. Multiple air-fluid levels throughout nondilated loops of small bowel. Air -fluid levels also noted throughout the large bowel. Normal appendix. Trace free fluid within the low er pelvis. Intermediate and hyperdense attenuating complex collections about the anterolateral right abdominal wall have increased in size from comparison, now measuring approximately 13.9 x 4.1 x 21.6 cm, (image 373 series 3 and image 29 series 300). Peripheral enhancement with surrounding stranding. Collection involves the deep subcutaneous tissues of the abdominal wall, rectus sheath and extraperit molina tissues of the abdominal right lower quadrant, now with extension into the space of Retzius. Ronald migdalia appear to be intact. IMPRESSION: 1. Large peripherally enhancing hematoma about the anterolateral and lateral aspects of the lower rig ht abdominal wall has increased in size from comparison study now measuring 13.9 x 4.1 x 21.6 cm. Hem atoma involves the extraperitoneal tissues of the right lower pelvis and space of Retzius. Infiltrati on of the adjacent tissues is also noted. A superimposed infection cannot be excluded. 2. No bowel obstruction. 3. Fluid-filled loops of small and large bowel may reflect enteritis with diarrheal illness. 4. Cirrhosis. 5. Splenomegaly. 6. Small left pleural effusion. Electronically signed by: Chintan Saavedra M.D. 07/25/2018 7:15 AM
[2018-07-25] MEDS: INSULIN ASPART 100 UNITS/ML 3 ML PEN SC SCH ×3 (07:49→19:27)
[2018-07-25] MEDS: SODIUM CHLORIDE 0.9% 1000ML 1,000 ML IV SCH ×2 (07:52→16:14)
[2018-07-25 08:04] LABS: BUN Creatinine Ratio 13.4 (10-20); Calcium 8.3 mg/dl (8.5-10.1); Creatinine Clr Calc Pharmacy 71.2 ml/min; Est GFR (African American) 71.1; Est GFR (Non-African American) 61.3; Magnesium 2.1 mg/dl (1.8-2.4); Potassium 3.4 mmol/L (3.5-5.1)
--- NOTE | 2018-07-25 08:54 | Surgery Consultation ---
Date of Consultation July 25, 2018 Assessment & Plan (1) Abdominal wall hematoma: Hematoma of uncertain etiology and now infected. Platelet count has ranged 50,000-70,000 in the past year. Underlying malignancy should also be excluded. Collection extensively involves RLQ and space of Retzius, and given his history of fasciitis, cirrhosis, thrombocytopenia we would recommend further evaluation at a tertiary center. History of Present Illness Attending Physician: Jacob Peterson Cresenciojamirafal History of Present Illness 62 y/o male with diabetes, cirrhosis seen in the ED 07/02 for R[address] with rectus sheath hematoma vs abscess vs necrotic neoplasm and discharged home with outpatient follow-up. Has had continued right abdominal pain, fevers, swelling and last night began draining bloody drainage from his midline scar from previous necrotizing fasciitis in 2016. Was scheduled for colonoscopy today for possible cecal lesion vs stool seen on07/02 CT (although he had normal colonoscopy two years ago and lesion was not seen on current CT). Local I &D was performed in the ER last night of right abdomen and was packed along with the midline opening. Gram stains show yeast, gram positive cocci, gram negative bacilli. Allergies Allergy/AdvReac Type Severity Reaction Status Date / Time No Known Allergies Allergy Unknown Verified 07/25/18 03:04 Home Medications Home Medications Medication Instructions Recorded Confirmed Type ezetimibe-simvastatin 1 tab PO QAM 07/02/18 07/25/18 History insulin glargine [Lantus Solostar 34 units SUBCUT QPM 07/02/18 07/25/18 History U-100 Insulin] linagliptin [Tradjenta] 5 mg PO QAM 07/02/18 07/25/18 History lisinopril 10 mg PO QAM 07/02/18 07/25/18 History melatonin 10 mg PO HS PRN 07/02/18 07/25/18 History ascorbic acid (vitamin C) [Vitamin 1 g PO QAM 07/09/18 07/25/18 History C] cholecalciferol (vitamin D3) 1,000 unit PO QAM 07/09/18 07/25/18 History [Vitamin D3] polyethylene glycol 3350 17 g PO BID PRN 07/09/18 07/25/18 History sennosides [senna] 2 tab PO BID PRN 07/09/18 07/25/18 History oxycodone-acetaminophen [Percocet] 1 tab PO Q4 PRN 07/25/18 07/25/18 History sildenafil (antihypertensive) 20 mg PO UD PRN 07/25/18 07/25/18 History Patient History Medical History Chronic anemia Diabetes mellitus, type 2 Diabetic peripheral neuropathy Hematoma of abdominal wall lower right quadrant History of colon polyps Hyperlipidemia Hypertension Kidney stones Lumbar radiculopathy Necrotizing fasciitis 2016 Renal dysfunction hx of during necrotizing fasciitis Sleep apnea history of; lost weight no longer has Thrombocytopenia Surgical History History of colonoscopy History of lithotripsy x2 History of surgery for necrotizing fasciitis of abdomen @ C Status post anal fissurectomy Status post cystoscopy with ureteral stent placement x2 Family History Father Family history of diabetes mellitus Social History marital status: Current Living Situation: Spouse current occupational status: employed Feels Safe at Home: Yes Safety Concerns: Feels Safe At This Time Smoking Status: Never smoker Second Hand Exposure: Yes ( smokes) Hx Alcohol Use: No Hx Substance Use: No Beliefs That Will Affect Care: None Preferred 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: [place] 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 Review of Systems Constitutional: + fever, + fatigue and + malaise Gastrointestinal: + abdominal pain; no change in bowel habits, no diarrhea/ loose stools, no blood in stools and no melena Genitourinary (Male): no dysuria, no difficulty urinating, no urinary frequency and no hematuria Physical Exam 2 Vital Signs (Past 24 Hours): Last Vital Signs Temp 36.4 C L 07/25/18 06:21 Pulse 87 07/25/18 06:21 Resp 18 07/25/18 06:21 BP 140/68 07/25/18 06:21 Pulse Ox 97 07/25/18 06:21 Constitutional: no acute distress Respiratory: normal respiratory effort, lungs clear to auscultation Cardiovascular: RRR, no murmur, no edema Gastrointestinal (Abdomen): Percussion/Palpation: + abdomen tender (RLQ indurated, midline scar <1cm opening, lateral I&D ~1cm no active draiange) Results & Data Diagnostic Findings ABDOMEN AND PELVIS CT WITH IV CONTRAST CT DOSE: 1292.80 mGy.cm HISTORY: Hematoma of the right abdominal wall. Acute right lower quadrant abdominal pain. RLQ hematoma, large amt midline drainage/hemorrhag TECHNIQUE: Multiaxial CT images of the abdomen and pelvis were performed following the use of intravenous contrast. A dose lowering technique was utilized adhering to the principles of ALARA. COMPARISON STUDY: CT abdomen and pelvis 07/02/2018 FINDINGS: Small left pleural effusion with dependent left basilar consolidation suggesting atelectasis. No pneumatosis or pneumoperitoneum. Trace pericardial effusion. Coronary arterial calcifications are noted. Cirrhotic morphology of the liver with mild hepatomegaly. Spleen is enlarged measuring up to 23 cm. 1.1 cm indeterminate hypodense lesion of the posterior spleen, statistically benign. Cholelithiasis without CT evidence of acute cholecystitis. Patency of the hepatic and portal veins. Pancreas and adrenal glands are unremarkable. Mildly prominent gastrohepatic and periportal lymph nodes, indeterminate. Cysts are noted about the bilateral kidneys measuring up to 5.5 cm about the superior pole right kidney. There are least for nonobstructing renal calculi on the left measuring up to 3 mm. Punctate nonobstructing calculus of the inferior pole right kidney. No ureteral calculi or obstructive uropathy. Wall thickening of the urinary bladder, greatest anteriorly. Calcification the aorta without aneurysm. No small bowel obstruction. Multiple air-fluid levels throughout nondilated loops of small bowel. Air-fluid levels also noted throughout the large bowel. Normal appendix. Trace free fluid within the lower pelvis. Intermediate and hyperdense attenuating complex collections about the anterolateral right abdominal wall have increased in size from comparison, now measuring approximately 13.9 x 4.1 x 21.6 cm, (image 373 series 3 and image 29 series 300) . Peripheral enhancement with surrounding stranding. Collection involves the deep subcutaneous tissues of the abdominal wall, rectus sheath and extraperitoneal tissues of the abdominal right lower quadrant, now with extension into the space of Retzius. Bones appear to be intact. IMPRESSION: 1. Large peripherally enhancing hematoma about the anterolateral and lateral aspects of the lower right abdominal wall has increased in size from comparison study now measuring 13.9 x 4.1 x 21.6 cm. Hematoma involves the extraperitoneal tissues of the right lower pelvis and space of Retzius. Infiltration of the adjacent tissues is also noted. A superimposed infection cannot be excluded. 2. No bowel obstruction. 3. Fluid-filled loops of small and large bowel may reflect enteritis with diarrheal illness. 4. Cirrhosis. 5. Splenomegaly. 6. Small left pleural effusion. Electronically signed by: Chintan Saavedra M.D. 07/25/2018 7:15 AM _ (1) Abdominal wall hematoma Encounter type: initial encounter Qualified Code(s): S30.1XXA - Contusion of abdominal wall, initial encounter
[2018-07-25] MEDS ORDERED: LISINOPRIL 10 MG TAB PO SCH (09:00)
[2018-07-25] MEDS ORDERED: EZETIMIBE/SIMVASTATIN 10/40MG 1 TAB TAB PO SCH (09:00)
[2018-07-25] MEDS ORDERED: ASCORBIC ACID 500 MG TAB PO SCH (09:00)
[2018-07-25] MEDS: OXYCODONE/ACETAMINOPHEN 5mg/325mg TAB PO PRN ×2 (09:46→19:23)
[2018-07-25] MEDS: AMPICILLIN/SULBACTAM SOD 3,000 MG in 0.9 % SODIUM CHLORIDE 100 ML IV SCH ×2 (10:15→16:43)
[2018-07-25] MEDS ORDERED: INSULIN GLARGINE SOLOSTAR 100 UNITS/ML 3 ML PEN SQ SCH (21:00)
--- NOTE | 2018-07-29 08:31 | Discharge Summary ---
Date of Service July 25, 2018 Admission HPI Per Admitting Provider 62 y/o M Hx DM II, HTN, HLD, iron-deficient anemia, cirrhosis by imaging, splenomegaly, necrotizing fasciitis of abdominal wall 2016, recent diagnosis of undefined soft tissue masses adjacent to rectus sheath. The pt noted a firm collection in his RL abdomen a few weeks ago. This was diagnosed as a hematoma and he was instructed on conservative management after visiting the ER. The hematoma had enlarged since then and had caused an increasing amount of pain. The pt was prepping for a colonoscopy the prior evening which is taking place due to the above finding of the soft tissue densities. He was preparing to deficate when a stream of blood emanated from a dimple-like scar on his lower mid abdomen. He then presented to the ER for evaluation. A CT abdomen in the ER revealed a complex 20cm fluid collection in the RLQ and ant bladder wall thickening with a 6cm collection. Chronic abnormalities were present as well including splenomegaly. The collection was drained at two sites and packed by the ER attending. It had a viscous, dark appearance and appeared to be infected as well. The pt's Hb was checked following drainage of the collection and had decreased from 10.9 to 8.6. Albeit, he did receive a litre of fluids as well. Labs were otherwise otable for an elevated K, hyponatremia and hypokalemia. 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 hematoma infected Discharge Exam General: AAO x 3, no distress ENT: No erythema or exudates, no thrush Eyes: DEVORA, EOMI Head and neck: Normocephalic, atraumatic, No JVD, neck is supple. Chest/heart: Nontender, S1,2, RRR, no murmurs, no gallops Lungs: CTAB, no wheezing or crackles Abdomen: Firm, circumscribed area on RLQ incision packed and drain placed, drain placed in sinus on lower ant abdomen Neuro: AAO x 3, speech is clear, no unilateral weakness or loss of sensation, coordination intact Musculoskeletal: No joint inflammation, muscle tenderness, FROM Skin: Erythema overlying hematoma areas Extremities: No clubbing, cyanosis, edema Discharge Data Allergies Allergy/AdvReac Type Severity Reaction Status Date / Time No Known Allergies Allergy Unknown Verified 07/25/18 03:04 Consultations 07/25/18 04:17 ED Decision to Admit Stat 07/25/18 06:40 Consult General Surgery Routine 07/25/18 15:32 Burn CD for patient Stat Ordered Studies 07/24/18 23:52 CT abd pelvis IV con only Urgent Hospital Course (1) Abdominal wall hematoma: 62 y/o M Hx DM II, HTN, HLD, iron-deficient anemia, cirrhosis by imaging, splenomegaly, necrotizing fasciitis of abdominal wall 2016, recent diagnosis of undefined soft tissue masses adjacent to rectus sheath. The pt noted a firm collection in his RL abdomen a few weeks ago. This was diagnosed as a hematoma and he was instructed on conservative management after visiting the ER. The hematoma had enlarged since then and had caused an increasing amount of pain. The pt was prepping for a colonoscopy the prior evening which is taking place due to the above finding of the soft tissue densities. He was preparing to deficate when a stream of blood emanated from a dimple-like scar on his lower mid abdomen. He then presented to the ER for evaluation. A CT abdomen in the ER revealed a complex 20cm fluid collection in the RLQ and ant bladder wall thickening with a 6cm collection. Chronic abnormalities were present as well including splenomegaly. The collection was drained at two sites and packed by the ER attending. It had a viscous, dark appearance and appeared to be infected as well. The pt's Hb was checked following drainage of the collection and had decreased from 10.9 to 8.6. Albeit, he did receive a litre of fluids as well. Labs were otherwise otable for an elevated K, hyponatremia and hypokalemia. 1) Large abdominal wall hematoma - possibly infected - willl request a surgical eval as he may need additional debridement. We will place him on Unasyn in the interim. Patient needs to be transferred to tertiary center. 2) Ant bladder wall thickening and possible collection/abscess - may be related drainage - this too should be evaluated by surgery or urology. A UA is pending - he was not having related symptoms. 3) Soft tissue densities - concern for colonic origin - He will need to delay a colonoscopy - can f/u as outpt 4) Nypona, hyperK without PREETI - IVF provided - repeat pending 5) DM - hyperglycemia - placed on Lantus and a SS 6) HTN/HLD - can remain on Lisinopril and Zocor Full code - SCDs Will transfer on BLS. patient will be going to [facility] Total Time Total Time Spent Total Time Spent (In Minutes): 45 Total Time Includes: Examination of the Patient, Discharge Planning and Medication Reconciliation Discharge Plan Discharge Items Patient Disposition: Transfer Acute Care Hospital Reason For Visit: INFECTED HEMATOMA Discharge Diagnosis: Infected Hematoma Condition: Fair Discharge Goals: Decrease discomfort Activity: Per 'Additional Instructions' section Activity Comment: Bed rest Non-emergency contact: Primary Care Provider and Specialist Call non-emergency contact if: you have any medication questions Diet: Regular Addtl Provider Instructions: You will be transferred to [facility] for possible surgical procedure. Patient received Unasyn while here. Prescriptions: Continue lisinopril 10 mg tablet 10 mg PO QAM RF: 0 ezetimibe-simvastatin 10-40 mg tablet 1 tab PO QAM RF: 0 insulin glargine 100 unit/mL (3 mL) insulin pen 34 units subcut QPM RF: 0 melatonin 5 mg Tablet 10 mg PO HS PRN (Reason: Sleep) RF: 0 linagliptin 5 mg tablet 5 mg PO QAM RF: 0 sennosides [senna] 8.6 mg Tablet 2 tab PO BID PRN (Reason: Constipation) RF: 0 ascorbic acid (vitamin C) [Vitamin C] 1,000 mg Tablet 1 g PO QAM RF: 0 polyethylene glycol 3350 17 gram Powder In Packet 17 g PO BID PRN (Reason: Constipation) RF: 0 cholecalciferol (vitamin D3) [Vitamin D3] 1,000 unit Capsule 1,000 unit PO QAM RF: 0 oxycodone-acetaminophen [Percocet] 5-325 mg Tablet 1 tab PO Q4 PRN (Reason: Pain) RF: 0 sildenafil (antihypertensive) 20 mg Tablet 20 mg PO UD PRN (Reason: Sexual Activity) RF: 0 Stand-Alone Forms: [facility] Discharge Orders: Discharge Order (Routine); Ordered 07/25/18 Ordered By: Jacob Pierce Admission Data Admit Date/Time: 07/25/18 05:16 Attending Provider: Jacob Pierce Admit Provider: Alirio Dodson Primary Care Provider: Radha Killian Other Providers: Alirio Dodson ; Wilberto Hoff Service: Telemetry Other Interventions: Discharge Summary Assessment (RN) Last Done: 07/25/18 16:56 DC Date/Time DO NOT enter until pt leaves facility: 07/25/18 20:10
== END 2018-07-25 20:10 | disposition short-term general hospital (02) | DRG 556 ==
LOC: ED 23:36 → SUATTDRO 07-25 05:16 → 1E 07-25 05:16 → 2S 07-25 10:09